=== PATIENT | female | born 1965 | race Caucasian/White ===

== ENCOUNTER 2021-07-16 03:56 | Observation (INO) | payer OTHER ==
[~2021-07-16] VITALS: Ht 165.1 cm; Wt 83.0 kg
[2021-07-16] VITALS (11 sets, daily range): BP systolic 97–170; BP diastolic 46–75
[~2021-07-16 03:56] MED LIST: GLIPIZIDE ER10 M1 PO; GLIPIZIDE ER5 MG PO; HUMALOG KWI100 MG/ML SC; LANTUS SOLOSTAR SC; LIPITOR10 MG PO; LIPITOR20 MG PO; LISINOPRIL10 MG PO; MAGNESIUM-OX400 MG PO; METFORMIN500 MG PO; NOVOLOG; NOVOLOG100 IU/1 M SC
--- NOTE | 2021-07-16 04:20 | NUR ---
PT AMBULATED TO ROOM PT STATED HAS BEEN DRY HEAVING SINCE MIDNIGHT CONSERNED SHE MAY BE GONG INTO DKA BLOOD SUGAR PANCHITO DIALLO AWARE
[2021-07-16 04:37] LABS: HEMATOCRIT 39.4 % (37.0-47.0); HEMOGLOBIN 13.3 g/dl (12.0-16.0); IMMATURE GRANULOCYTES 0.5 % (0.0-5.0); MEAN CORPUSCULAR HGB 30.4 pG CALC (26.0-32.0); MEAN CORPUSCULAR HGB CONC 33.8 g/dL CAL (32.0-36.0); NEUT# 7.2 thou/uL (2.00-7.15); RED BLOOD COUNT 4.37 mill/uL (4.20-5.60); RED CELL DISTRI WIDTH 11.8 % (11.5-15.5)
[2021-07-16 04:38] LABS: MEAN CELL VOLUME 90.2 fL CALC (80.0-100.0)
[2021-07-16 04:38] LABS: URINE BILIRUBIN - DIPSTICK NEGATIVE (NEGATIVE); URINE BLOOD DIPSTICK NEGATIVE (NEGATIVE); URINE COLOR YELLOW; URINE GLUCOSE - DIPSTICK >=1000 mg/dL (NEGATIVE); URINE KETONE 40 mg/dL (NEGATIVE); URINE LEUK ESTERASE NEGATIVE (NEGATIVE); URINE PH 5.5 (4.5-8.0); URINE PROTEIN - DIPSTICK NEGATIVE (NEG-TRACE); URINE UROBILINOGEN - DIPSTICK 0.2 E.U./dL (0.2)
[2021-07-16 04:43] LABS: URINE NITRITE - DIPSTICK NEGATIVE (Negative)
[2021-07-16 04:47] LABS: ALBUMIN 3.9 g/dL (3.2-5.0); AMYLASE 70 u/l (30-110); BILIRUBIN, TOTAL 0.8 mg/dL (0.0-1.4); BUN 35 mg/dL (7-17); BUN/CREATININE RATIO 40 (12-20 (CALC)); CHLORIDE 96 mmol/l (95-108); CREATININE 0.9 mg/dL (0.5-1.0); GFR > 60 ML/MIN (>=60 (CALC)); GFR FOR AFR.AMER. > 60 ML/MIN (>=60 (CALC)); LIPASE 134 u/l (23-300); SGOT/AST 38 u/l (14-36); TOTAL PROTEIN 6.9 g/dL (6.3-8.2)
[2021-07-16 04:56] LABS: ALKALINE PHOSPHATASE 270 u/l (38-126); ANION GAP 22 (6-22 (CALC)); CARBON DIOXIDE 16 mmol/l (22-30); POTASSIUM 5.4 mmol/l (3.5-5.1); SODIUM 129 mmol/l (137-146)
[2021-07-16 05:00] LABS: MYOGLOBIN 27 ng/mL (0 - 62)
--- NOTE | 2021-07-16 05:00 | NUR ---
Reassessment of patient completed. No distress noted.
--- NOTE | 2021-07-16 06:00 | NUR ---
RECEIVED INTO ICU BED 1 FROM ER VIA STRETCHER. PATIENT AWAKE, ALERT AND ORIENTED ON ARRIVAL TO UNIT. PLACED ON INSPECTOR AND UNLOADER SHOWING SR, HR 90'S. RESP EVEN AND UNLABORED. RA O2 SAT 93-94% PATIENT IS COVID+ BUT DENIES HAVING ANY SYMPTOMS. IV IN RFA WITH NS INFUSING AT 100 ML/HR AND INSULIN GTT AT 5 ML/HR. ORIENTED TO SURROUNDINGS. EXPLAINED USE OF CALL HDZ AND BED CONTROLS. CALL HDZ IN REACH. DENIES NEEDS AT THIS TIME.
--- NOTE | 2021-07-16 06:10 | NUR ---
PT ADMIT TO ICU REPORT CALLED TRANSFERRED PT TO ICU ROOM WITHOUT INCIDENCE
--- NOTE | 2021-07-16 07:05 | NUR ---
pt awake in bed; no apparent distress noted; pt offers no complaints; assessment completed at this time; pt alert and oriented; denies pain; no n/v noted; po fluids provided; resp even and unlabored; lungs clear; skin color wnl; ra; hr reg; strong pulses; no edema noted; sr on monitor; abd soft with bs present; no bm noted per loan underwriter; no urine to inspect at this time; bsc; #20 patent to rw with ivf infusing without complication; insulin gtt infusing at 5 units/hr; no redness or edema noted at site; glucose 421; plan of care/ meds explained; prec cont for covid+; call light within reach; will continue to monitor
--- NOTE | 2021-07-16 08:07 | NUR ---
awake in bed; glucose obtained; sr on monitor; in intact and patent; kalpana cruz applied; call light within reach
--- NOTE | 2021-07-16 09:03 | NUR ---
Dr Yang present at bedside to assess pt and discuss plan of care; am labs obtained per this flex o writer operator x1 attempt; gluocse 345; insulin gtt dc'd at this time as per MD verbal order; iv intact and patent; sr on monitor; pt ate 50% breakfast and tolerated well; call light within reach; will continue to monitor
[2021-07-16 09:25] LABS: BUN 29 mg/dL (7-17); BUN/CREATININE RATIO 37 (12-20 (CALC)); CHLORIDE 105 mmol/l (95-108); CREATININE 0.8 mg/dL (0.5-1.0); GFR > 60 ML/MIN (>=60 (CALC)); GFR FOR AFR.AMER. > 60 ML/MIN (>=60 (CALC)); SODIUM 133 mmol/l (137-146)
[2021-07-16 09:26] LABS: ANION GAP 12 (6-22 (CALC)); CARBON DIOXIDE 20 mmol/l (22-30); POTASSIUM 4.2 mmol/l (3.5-5.1)
[2021-07-16 10:03] LABS: MAGNESIUM 1.8 mg/dL (1.6-2.3)
--- NOTE | 2021-07-16 10:07 | NUR ---
pt awake in bed; offers no complaints; iv intact and patent; no redness or edema noted at site; sr on monitor; insulin pump resumed per pt; settings checked per this designer writer and noted at 57 basal rate (pt states to be delivered over 24 hours); insulin needle intact to right abd; will continue to monitor
--- NOTE | 2021-07-16 12:00 | NUR ---
awake in bed; no distress noted; pt offers no complaints; iv intact and patent; sr on monitor; call light within reach; will continue to monitor
--- NOTE | 2021-07-16 13:02 | NUR ---
awake in bed; offers no complaints; no apparent distress noted; iv saline locked; sr on monitor; glucose 291; call light within reach; will continue to monitor
--- NOTE | 2021-07-16 13:07 | NUR ---
Dr Yang informed of glucose of 291; abstract writer to continue with discharge as per order
--- NOTE | 2021-07-16 13:31 | NUR ---
discharge instructions reviewed; awaiting poultry picking machine tender
--- NOTE | 2021-07-16 13:50 | NUR ---
Discharge instructions given. Patient verbalizes understanding of same. Discharged in stable condition via Wheelchair to Home with spouse. All belongings sent with pt.
== END 2021-07-16 13:50 | disposition home or self-care (01) | DRG 637 ==
LOC: ED 03:56 → ED-I 05:07 → ED 05:21 → ICU 05:22
PROVIDERS: Emergency Medicine; ADMIT Hospitalist; ATTEND Hospitalist
DX: E10.10 Type 1 diabetes mellitus with ketoacidosis without coma (principal); U07.1 COVID-19; I10 Essential (primary) hypertension; E78.5 Hyperlipidemia, unspecified; Z96.21 Cochlear implant status; Z87.891 Personal history of nicotine dependence; Z96.41 Presence of insulin pump (external) (internal); Z91.19 Patient's noncompliance with other medical treatment and regimen; Z79.4 Long term (current) use of insulin

== ENCOUNTER 2023-12-11 08:22 | Day surgery (SDC) | payer OTHER ==
[~2023-12-11] VITALS: Ht 165.1 cm; Wt 93.0 kg
[~2023-12-11 08:22] MED LIST changes: +BAYER ASPIRIN E81 MG PO; +HYDROCHLOROT25 MG PO
[2023-12-11] MEDS ORDERED: SODIUM CHLORIDE 0.9% 1,000 ML IV ONE (08:32)
[2023-12-11 10:35] VITALS: BP 132/69
[2023-12-11] MEDS ORDERED: LIDOCAINE HCL 2% 2ML SDV IV ONE (14:27)
[2023-12-11] MEDS ORDERED: GLYCOPYRROLATE 0.2 MG/ML IV ONE (14:27)
[2023-12-11] MEDS ORDERED: PROPOFOL 200 MG/20 ML VIAL IV ONE (14:27)
== END 2023-12-11 10:49 | disposition home or self-care (01) | DRG 951 ==
LOC: ENDO 08:22
PROVIDERS: ATTEND Internal Medicine Gastroenterology
PROC: 0DBP8ZX Excision of Rectum, Via Natural or Artificial Opening Endoscopic, Diagnostic (ICD-10-PCS; principal; 2023-12-11)
DX: Z12.11 Encounter for screening for malignant neoplasm of colon (principal); K62.1 Rectal polyp; K64.8 Other hemorrhoids; I10 Essential (primary) hypertension; E11.9 Type 2 diabetes mellitus without complications; E78.5 Hyperlipidemia, unspecified; Z79.4 Long term (current) use of insulin; Z96.41 Presence of insulin pump (external) (internal)

== ENCOUNTER 2024-01-09 18:37 | Emergency (ER) | payer OTHER ==
[2024-01-09] VITALS (15 sets, daily range): BP systolic 92–146; BP diastolic 47–63
[~2024-01-09] VITALS: Ht 165.1 cm; Wt 70.0 kg
[2024-01-09] MEDS ORDERED: SODIUM CHLORIDE 0.9% 1,000 ML IV ONE (19:30)
[2024-01-09] MEDS ORDERED: ACETAMINOPHEN 500 MG TAB PO ONE (19:30)
[2024-01-09 19:35] LABS: BASO% 0.3 % (0-3); EOS% 0.5 % (0-8); HEMATOCRIT 42.6 % (37.0-47.0); IMMATURE GRANULOCYTES 0.1 % (0.0-5.0); LYMPH% 26.2 % (15-41); MEAN CORPUSCULAR HGB 29.9 pG CALC (26.0-32.0); MEAN CORPUSCULAR HGB CONC 32.9 g/dL CAL (32.0-36.0); MONO% 9.7 % (2-13); NEUT# 5.51 thou/uL (2.00-7.15); NEUT% 63.2 % (42-76); RED BLOOD COUNT 4.68 mill/uL (4.20-5.60); RED CELL DISTRI WIDTH 12.6 % (11.5-15.5)
[2024-01-09 19:41] LABS: ALBUMIN 4.2 g/dL (3.2-5.0); ANION GAP 12 (6-22 (CALC)); BILIRUBIN, TOTAL 0.6 mg/dL (0.02-1.3); BUN 25 mg/dL (7-17); BUN/CREATININE RATIO 15 (12-20 (CALC)); CARBON DIOXIDE 22 mmol/l (22-30); CHLORIDE 106 mmol/l (95-108); CREATININE 1.6 mg/dL (0.5-1.0); ESTIMATED GFR 37 ML/MIN (>=90 (CALC)); POTASSIUM 4.1 mmol/l (3.5-5.1); SGOT/AST 41 u/l (14-36); SODIUM 136 mmol/l (137-146); TOTAL PROTEIN 7.5 g/dL (6.3-8.2)
[2024-01-09 19:50] LABS: ALKALINE PHOSPHATASE 94 u/l (38-126)
[2024-01-09] MEDS ORDERED: LACTATED RINGER'S 1,000 ML IV ONE (21:20)
[2024-01-09 23:47] LABS: URINE BILIRUBIN - DIPSTICK Negative (NEGATIVE); URINE BLOOD DIPSTICK Negative (NEGATIVE); URINE GLUCOSE - DIPSTICK Negative (NEGATIVE); URINE KETONE Trace mg/dL (NEGATIVE); URINE NITRITE - DIPSTICK Negative (Negative); URINE PROTEIN - DIPSTICK 30 mg/dL (NEG-TRACE); URINE UROBILINOGEN - DIPSTICK 0.2 E.U./dL (0.2)
[2024-01-09 23:48] LABS: URINE COLOR Yellow; URINE LEUK ESTERASE Small (NEGATIVE)
[2024-01-09 23:59] LABS: URINE BACTERIA MODERATE hpf; URINE MUCUS MANY hpf (NONE-FEW); URINE SQUAMOUS EPITHELIAL CELL MODERATE EPI/hpf (0-FEW); URINE WBC 20-50 WBC/hpf (0-5)
[2024-01-10] MEDS ORDERED: PAXLOVID PO (00:12)
[2024-01-10] MEDS ORDERED: BACTRIM DS1 TAB PO (00:12)
[2024-01-10] MEDS ORDERED: SULFAMETHOXAZOLE W/TRIMETHOPRI 1 COMBO TAB PO ONE (00:15)
[2024-01-10 00:30] VITALS: BP 145/60
== END 2024-01-10 00:40 | disposition home or self-care (01) | DRG 178 ==
LOC: ED 18:37
PROVIDERS: Family Medicine
DX: U07.1 COVID-19 (principal); R05.9 Cough, unspecified; R09.81 Nasal congestion; R42 Dizziness and giddiness; R53.83 Other fatigue; N39.0 Urinary tract infection, site not specified; I10 Essential (primary) hypertension; E11.8 Type 2 diabetes mellitus with unspecified complications; Z79.4 Long term (current) use of insulin; Z96.41 Presence of insulin pump (external) (internal)